=== PATIENT | female | born 1950 | race African-American/Black ===

== ENCOUNTER 2022-08-27 07:39 | Day surgery (SDC) | payer OTHER, MEDICARE ==
[2022-08-23 12:14] VITALS: BMI 30.9
[2022-08-27] MEDS ORDERED: CEFAZOLIN 2 GM in DEXTROSE 5%-WATER - 50 ML IVPB ONE (09:00)
[2022-08-27] MEDS ORDERED: ONDANSETRON 4 MG/2 ML VIAL IVPUSH PRN ×2 (09:19→14:38)
[2022-08-27] MEDS ORDERED: MIDAZOLAM HCL 2 MG/2 ML SINGLE DOSE VIAL ONE ×2 (09:36→10:49)
[2022-08-27] MEDS ORDERED: BUPIVACAINE HCL/PF 2.5 MG/ML - 30 ML VIAL IJ ONE (09:37)
[2022-08-27] MEDS ORDERED: DEXMEDETOMIDINE HCL 200 MCG/2 ML IVPB ONE (09:37)
[2022-08-27] MEDS ORDERED: TRANEXAMIC ACID 1000 MG/10 ML VIAL IVPUSH ONE (09:45)
[2022-08-27] MEDS ORDERED: VANCOMYCIN 1,000 MG VIAL (RESTRICTED TO ID ONLY) ONE ×3 (09:54→11:26)
[2022-08-27] MEDS ORDERED: ceFAZolin SODIUM 1 GM VIAL ONE (11:26)
[2022-08-27] MEDS ORDERED: TRANEXAMIC ACID 1000 MG/10 ML VIAL ONE ×2 (11:28→13:29)
[2022-08-27] MEDS ORDERED: DEXAMETHASONE SOD PHOSPHATE 4 MG/1 ML VIAL ONE (11:37)
[2022-08-27] MEDS ORDERED: PROPOFOL 40 ML ONE (11:37)
[2022-08-27] MEDS ORDERED: PROPOFOL 20 ML ONE ×2 (12:57→13:26)
[2022-08-27] MEDS ORDERED: BUPIVICAINE 0.25%/MORPH PF/KETOROLAC - 51ML DISP.SYRINGE IA ONE ×2 (13:00→13:53)
[2022-08-27] MEDS ORDERED: ONDANSETRON 4 MG/2 ML VIAL ONE (13:31)
[2022-08-27] MEDS ORDERED: PATIENT'S OWN MEDICATION (NON-FORMULARY) (Naproxen Sodium [Aleve] 220 MG Tablet) PO PRN (14:27)
[2022-08-27] MEDS ORDERED: KETOROLAC TROMETHAMINE 30 MG/1 ML VIAL IVPUSH ONE (14:40)
[2022-08-27] MEDS ORDERED: ACETAMINOPHEN 1000 MG/100 ML BAG IVPB ONE (14:40)
[2022-08-27] MEDS ORDERED: LACTATED RINGERS SOLUTION 1,000 ML IV SCH (14:45)
[2022-08-27] MEDS ORDERED: FENTANYL CITRATE/PF 50 MCG/ML VIAL ONE (14:59)
[2022-08-27] MEDS: VANCOMYCIN 1 GM in D5W (PRE-DOCKED) 1,000 MG/250 ML (RESTRICTED TO ID ONLY IVPB SCH ×2 (16:05→16:06)
[2022-08-27] MEDS: LACTATED RINGERS SOLUTION 1,000 ML IV SCH (16:06)
[2022-08-27 16:08] VITALS: RESP 18
[2022-08-27] MEDS: oxyCODONE HCL 5 MG TABLET PO PRN ×2 (17:41→21:21)
[2022-08-27] MEDS: CEFAZOLIN SODIUM 2 GM in DEXTROSE 5%-WATER 100 ML IVPB SCH (17:44)
[2022-08-27] MEDS: SENNOSIDES/DOCUSATE COMBO (SENNA PLUS) TABLET (UD) PO SCH (21:21)
[2022-08-27] MEDS: GABAPENTIN 300 MG CAPSULE PO SCH (21:21)
[2022-08-27] MEDS: ASPIRIN 325 MG TABLET PO SCH (21:21)
[2022-08-27] MEDS: ASCORBIC ACID 500 MG TABLET (FP) PO SCH (21:21)
[2022-08-28] MEDS: CEFAZOLIN SODIUM 2 GM in DEXTROSE 5%-WATER 100 ML IVPB SCH (02:17)
[2022-08-28] MEDS: oxyCODONE HCL 5 MG TABLET PO PRN (06:01)
[2022-08-28] MEDS ORDERED: oxyCODONE HCL 5 MG TABLET PO PRN (07:25)
[2022-08-28] MEDS ORDERED: ACETAMINOPHEN 500 MG TABLET (FP) PO SCH (08:00)
[2022-08-28 08:05] LABS: HEMATOCRIT 33.9 % (32.4-45.2); HEMOGLOBIN 11.2 G/dL (10.7-15.3); MCH 28.3 pg (25.7-33.7); MEAN CELL VOLUME 85.9 fl (80-96); MEAN PLT VOLUME 8.1 fl (7.5-11.1); RBC 3.95 10^6/uL (3.60-5.2); RDW 14.5 % (11.6-15.6); WHITE BLOOD COUNT 7.4 10^3/uL (4.0-10.8)
[2022-08-28 08:14] LABS: CALCIUM 8.7 mg/dl (8.5-10); CREATININE 0.8 mg/dl (0.55-1.3); POTASSIUM 3.8 mmol/L (3.5-5.1)
[2022-08-28 09:09] VITALS: BP 94/47; PULSE 57; TEMP 98.8
[2022-08-28] MEDS: SENNOSIDES/DOCUSATE COMBO (SENNA PLUS) TABLET (UD) PO SCH (09:41)
[2022-08-28] MEDS: GABAPENTIN 300 MG CAPSULE PO SCH (09:42)
[2022-08-28] MEDS: ASPIRIN 325 MG TABLET PO SCH (09:43)
[2022-08-28] MEDS: ASCORBIC ACID 500 MG TABLET (FP) PO SCH (09:44)
[2022-08-28] MEDS: LACTATED RINGERS SOLUTION 1,000 ML IV SCH (09:45)
[2022-08-28] MEDS ORDERED: PATIENT'S OWN MEDICATION (NON-FORMULARY) (Cyanocobalamin (Vitamin B-12) [Vitamin B12] 2,50 PO SCH (10:00)
[2022-08-28] MEDS ORDERED: PANTOPRAZOLE 40 MG TABLET PO SCH (10:00)
[2022-08-28] MEDS ORDERED: PATIENT'S OWN MEDICATION (NON-FORMULARY) (Biotin [Biotin] 1 MG Capsule) PO SCH (10:00)
[2022-08-28] MEDS ORDERED: MULTIVITAMINS (DAILY MVI) TABLET (FP) PO SCH ×2 (10:00)
[2022-08-28] MEDS ORDERED: ASPIRIN 81 MG CHEWABLE TABLETS PO SCH (22:00)
== END 2022-08-28 15:30 | disposition home or self-care (01) ==
LOC: FASUSAT 07:39 → SUATTDRO 07:39 → FM/S 15:04 → FASUSAT 08-28 15:30
PROVIDERS: ATTEND Internal Medicine
PROC: 8E0Y0CZ Robotic Assisted Procedure of Lower Extremity, Open Approach (ICD-10-PCS; 2022-08-27)
PROC: 0SR90JA Replacement of Right Hip Joint with Synthetic Substitute, Uncemented, Open Approach (ICD-10-PCS; principal; 2022-08-27 12:00)
DX: M16.11 Unilateral primary osteoarthritis, right hip (principal)
CPT/HCPCS: 20985; 27130; C1776; S2900; 36415; 73502-TC-RT-FY; 80048; 85027; 88305-TC; 88311-TC; 94760; 97010-GP; 97116-GP; 97162-GP; C1713; C1889